=== PATIENT | female | born 1980 | race American Indian/Alaskan Native ===

== ENCOUNTER 2018-08-07 10:17 | Emergency (ER) | payer OTHER ==
[2018-08-07 10:36] VITALS: BP 158/85
--- NOTE | 2018-08-07 11:22 | Emergency Department Report ---
ED Lower Extremity HPI - General Chief Complaint: Extremity Problem,Nontraumatic Stated Complaint: DEHYDRATION/PAIN IN R LEG/FOOT Source: patient Mode of arrival: Ambulatory Limitations: No Limitations - History of Present Illness Initial Comments: This is a 38-year-old female who presents to the emergency room with right lower extremity pain for several days. Patient reports pain is burning radiating pain from the right posterior thigh to right ankle. Patient reports pain is worse with weightbearing. Patient states she started a new job which requires standing and one spot for long period of times. She call the nurse hotline from the back of her care source car on yesterday and was told to elevate her legs. Patient states she elevated her legs all day when she got off work and swelling decrease. She denies recent injury, warmth to the area, or bruising. MD Complaint: leg injury Onset/Timin -: days(s) Injury: Leg: Right Type of Injury: unknown Place: work Severity: moderate Severity scale (0 -10): 7 Improves With: immobilization Worsens With: weight bearing Context: walking Associated Symptoms: swelling, able to partially bear weight, ambulatory. denies: snap/pop sensation, numbness, tingling, unable to bear weight Treatments Prior to Arrival: NSAIDS - Related Data Previous Rx's Medication Instructions Recorded Last Taken Type Naproxen [Naprosyn] 500 mg PO BID PRN #20 tablet 08/07/18 Unknown Rx methOCARBAMOL [Robaxin TAB] 500 mg PO BID PRN #20 tab 08/07/18 Unknown Rx Allergies Allergy/AdvReac Type Severity Reaction Status Date / Time No Known Allergies Allergy Unverified 08/07/18 10:25 ED Review of Systems ROS: Stated complaint: DEHYDRATION/PAIN IN R LEG/FOOT Other details as noted in HPI Constitutional: denies: chills, fever Respiratory: denies: cough, shortness of breath, wheezing Cardiovascular: denies: chest pain, palpitations Gastrointestinal: denies: abdominal pain, nausea, diarrhea Musculoskeletal: arthralgia (right leg pain). denies: back pain, joint swelling Skin: denies: rash, lesions Neurological: denies: headache, weakness, paresthesias ED Past Medical Hx - Past Medical History Previous Medical History?: Yes Additional medical history: Fibroids - Surgical History Past Surgical History?: Yes Additional Surgical History: weight loss surgery - Social History Smoking Status: Current Every Day Smoker Substance Use Type: Marijuana - Medications Home Medications: Home Medications Medication Instructions Recorded Confirmed Last Taken Type Naproxen [Naprosyn] 500 mg PO BID PRN #20 tablet 08/07/18 Unknown Rx methOCARBAMOL [Robaxin TAB] 500 mg PO BID PRN #20 tab 08/07/18 Unknown Rx ED Physical Exam - General Limitations: No Limitations General appearance: alert, in no apparent distress - Respiratory Respiratory exam: Present: normal lung sounds bilaterally. Absent: respiratory distress - Cardiovascular Cardiovascular Exam: Present: regular rate, normal rhythm. Absent: systolic murmur, diastolic murmur, rubs, gallop - GI/Abdominal GI/Abdominal exam: Present: soft, normal bowel sounds - Extremities Exam Extremities exam: Present: normal inspection - Expanded Lower Extremity Exam Right Hip exam: Present: full ROM (painful range of motion). Absent: tenderness, swelling, abrasion, laceration, ecchymosis, deformity, crepidus, dislocation, erythema, external rotation, internal rotation, shortening, pelvic stability Upper Leg exam: Present: normal inspection, full ROM Knee exam: Present: normal inspection, full ROM Lower Leg exam: Present: normal inspection, full ROM Ankle exam: Present: full ROM. Absent: tenderness, swelling, abrasion, laceration, ecchymosis, deformity, crepidus, dislocation, erythema, anterior draw sign Foot/Toe exam: Present: normal inspection, full ROM Neuro vascular tendon exam: Present: no vascular compromise Gait: Positive: observed and limited by pain - Back Exam Back exam: Present: full ROM, other (positive straight leg on the right). Absent: muscle spasm, paraspinal tenderness, vertebral tenderness, rash noted - Neurological Exam Neurological exam: Present: alert, oriented X3, normal gait - Psychiatric Psychiatric exam: Present: normal affect, normal mood - Skin Skin exam: Present: warm, dry, intact, normal color. Absent: rash ED Course Vital Signs 08/07/18 10:32 Temperature 98.3 F Pulse Rate 82 Respiratory 18 Rate Blood Pressure 158/85 O2 Sat by Pulse 100 Oximetry ED Lower Extremity MDM - Medical Decision Making Patient was examined by me. Vitals are normal and patient is in no acute distress. Positive straight leg test on the right. Patient denies recent injury and swelling resolved. Findings are susceptible of sciatica pain to right lower extremity without back pain. Patient will be started muscle relaxants and NSAIDs. Referral to orthopedics and a primary care doctor for follow-up. Return to work tomorrow. Patient discharged home in stable condition. Follow up with PCP in 2-3 days. Critical care attestation.: If time is entered above; I have spent that time in minutes in the direct care of this critically ill patient, excluding procedure time. ED Disposition Clinical Impression: Sciatica of right side without back pain, Leg pain, right Disposition: TO HOME OR SELFCARE Is pt being admited?: No Does the pt Need Aspirin: No Condition: Stable Instructions: Sciatica (ED), Arthralgia (ED) Additional Instructions: Rest Use ice or heat on affected area for 20 minutes and off for 2 hours. Take pain medication twice a day as needed for pain. Don't drive or operate heavy machinery while taking muscle relaxers because they may cause drowsiness. I have provided referral information for an orthopedic surgeon if symptoms are worsening follow-up with them. Follow up with Primary Care Provider in 2-3 days. Prescriptions: Naproxen [Naprosyn] 500 mg PO BID PRN #20 tablet PRN Reason: Pain , Severe (7-10) methOCARBAMOL [Robaxin TAB] 500 mg PO BID PRN #20 tab PRN Reason: Muscle Spasm Referrals: SHARLA SMITH MD [Primary Care Provider] - 3-5 Days MICHELL GOLDMAN MD [Staff Physician] - 3-5 Days [facility] [Provider Group] - 3-5 Days [facility] [Outside] - 3-5 Days Forms: Work/School Release Form(ED) Time of Disposition: 11:26
== END 2018-08-07 11:36 | disposition home or self-care (01) ==
LOC: ED 10:17
DX: M54.31 Sciatica, right side (principal); M79.604 Pain in right leg
CPT/HCPCS: 99282